=== PATIENT | female | born 1990 | race American Indian/Alaskan Native ===

== ENCOUNTER 2021-04-24 13:18 | Outpatient (CLI) | payer SELFPAY ==
[2021-04-24 13:49] VITALS: BP 117/67
[2021-04-24] MEDS ORDERED: LACTATED RINGERS 1,000 ML IV ONE (14:13)
[2021-04-24 15:00] LABS: Bacteria,Urine 4+ /HPF (Negative); Bilirubin,Urine NEG (Negative); Blood,Urine NEG (Negative); Color,Urine Yellow (Yellow); Granular Casts,Urine 21 /LPF; Mucus,Urine 2+ /HPF; Urobilinogen,Urine < 2.0 mg/dL (<2.0)
[2021-04-24 15:07] LABS: RBC,Urine > 182.0 /HPF (0.0-6.0); WBC,Urine > 182.0 /HPF (0.0-6.0)
[2021-04-24] MEDS ORDERED: FLUCONAZOLE 100 MG TAB PO NR (16:00)
[2021-04-24] MEDS ORDERED: metroNIDAZOLE/NS 500 MG/100 ML 500 MG/100 ML BAG IV NR (16:00)
== END 2021-04-24 17:49 | disposition home or self-care (01) ==
LOC: EDBD → TRG 13:18 → APU 13:21 → TRG 17:49
PROVIDERS: ATTEND Obstetrics & Gynecology
DX: O26.893 Other specified pregnancy related conditions, third trimester (principal); R10.30 Lower abdominal pain, unspecified; O47.03 False labor before 37 completed weeks of gestation, third trimester; Z3A.30 30 weeks gestation of pregnancy
CPT/HCPCS: 59025; 81001; 96365; 96366; 96367; J0690; J7120; 96360

== ENCOUNTER 2021-05-19 13:03 | Outpatient (CLI) | payer SELFPAY ==
[2021-05-19 13:28] VITALS: BP 113/62
[2021-05-19 14:05] LABS: Bacteria,Urine 1+ /HPF (Negative); Bilirubin,Urine NEG (Negative); Blood,Urine NEG (Negative); Color,Urine Yellow (Yellow); Mucus,Urine FEW /HPF; Protein,Urine <15 mg/dL mg/dL (Negative); Urobilinogen,Urine < 2.0 mg/dL (<2.0)
[2021-05-19] MEDS ORDERED: LACTATED RINGERS 1,000 ML IV ONE (14:33)
[2021-05-19] MEDS ORDERED: FLUCONAZOLE 100 MG TAB PO ONE (16:00)
== END 2021-05-19 16:45 | disposition home or self-care (01) ==
LOC: EDBD → TRG 13:03 → APU 13:04 → TRG 16:45
PROVIDERS: ATTEND Obstetrics & Gynecology
DX: Z34.93 Encounter for supervision of normal pregnancy, unspecified, third trimester (principal); Z3A.33 33 weeks gestation of pregnancy
CPT/HCPCS: 59025; 81001

== ENCOUNTER 2021-06-08 21:59 | Emergency (ER) | payer SELFPAY ==
[2021-06-08 23:39] LABS: Basophils % (Auto) 0.2 % (0.0-1.8); Eosinophils # (Auto) 0.4 K/mm3 (0.0-0.4); Eosinophils % (Auto) 3.2 % (0.0-4.3); Hematocrit 33.8 % (30.3-42.9); Hemoglobin 11.1 gm/dl (10.1-14.3); Lymphocytes # (Auto) 1.2 K/mm3 (1.2-5.4); Lymphocytes % (Auto) 9.9 % (13.4-35.0); Mean Corpuscular HGB Conc 33 % (30-34); Mean Corpuscular Volume 93 fl (79-97); Monocytes # (Auto) 1.2 K/mm3 (0.0-0.8); Monocytes % (Auto) 10.5 % (0.0-7.3); Platelet Count 258 K/mm3 (140-440); Red Blood Count 3.62 M/mm3 (3.65-5.03)
[2021-06-08 23:46] LABS: Alanine Aminotransferase 26 units/L (7-56); Albumin 3.6 g/dL (3.9-5)
[2021-06-09 00:03] LABS: Blood Urea Nitrogen 5 mg/dL (7-17); Calcium 9.1 mg/dL (8.4-10.2); Hemolysis Index 0
[2021-06-09 00:06] LABS: BUN/Creatinine Ratio 13
--- NOTE | 2021-06-09 02:51 | Emergency Department Report ---
ED Chest Pain HPI - General Chief Complaint: Chest Pain Stated Complaint: 36 WEEKS PREG, CHEST PAIN KEVIN PUI?: No Time Seen by Provider: 06/09/21 02:32 Source: patient Mode of arrival: Ambulatory Limitations: No Limitations - History of Present Illness Initial Comments: Patient is a 31-year-old female who presents emergency room with complaints of chest pain, cough, nasal congestion and shortness of breath. Patient states is been well for 3 days. Patient states she is 36 weeks . Patient states prior to coming to the emergency room she went to the labor and delivery area and a stated the baby is doing fine. Patient states that she was connected to the contraction monitor and the heart monitor and everything was normal. Patient states that her symptoms are worsening. Patient states that the nasal congestion is bothering her the most. Patient states that her chest pain is mild. Patient patient denies having the COVID-19 vaccine. Patient denies fever and chills. Patient denies nausea vomiting. Patient states her has been healthy. Patient denies recent travel. Patient denies recent international travel. Patient denies exposure to the novel coronavirus. Patient denies sick contacts. Patient denies fever and chills. Patient denies loss of smell. Patient denies diarrhea. Patient denies coming in contact with anybody with symptoms of the novel coronavirus. Patient states she is being followed by her PLANT CULTURE MANAGER. Patient states her care has been normal and uneventful. Patient states she is a G3, P1. MD Complaint: chest pain -: Sudden, days(s) Pain Location: right chest Severity scale (0 -10): 3 Quality: aching Improves With: rest Worsens With: inspiration, palpation, movement re: dyspnea Other Symptoms: cough. denies: fever, syncope, rash, acid taste in mouth, leg swelling, palpitations, burping Treatments Prior to Arrival: none Aspirin use within the Past 7 Days: (0) No - Related Data On Oral Contraceptives: No Previous Rx's Medication Instructions Recorded Last Taken Type Amoxicillin [Amoxicillin TAB] 875 mg PO BID 10 Days #20 tablet 06/09/21 Unknown Rx Fluticasone Furoate [Flonase 2 sprays NS BID #1 spray.susp 06/09/21 Unknown Rx Sensimist] Allergies Allergy/AdvReac Type Severity Reaction Status Date / Time No Known Allergies Allergy Verified 05/19/21 13:32 Heart Score - HEART Score History: Slightly suspicious EKG: Normal Age: < 45 Risk factors: No known risk factors Troponin: < normal limit HEART Score: 0 - EKG Read Time Time EKG Completed: 22:09 EKG Read Time: 22:11 ED Review of Systems ROS: Stated complaint: 36 WEEKS PREG, CHEST PAIN KEVIN Other details as noted in HPI Constitutional: denies: chills, fever Eyes: denies: eye pain, eye discharge, vision change ENT: as per HPI, congestion. denies: ear pain, throat pain Respiratory: see HPI, cough, shortness of breath. denies: wheezing Cardiovascular: as per HPI, chest pain. denies: palpitations Endocrine: no symptoms reported Gastrointestinal: denies: abdominal pain, nausea, diarrhea Genitourinary: denies: urgency, dysuria, discharge Musculoskeletal: denies: back pain, joint swelling, arthralgia Skin: denies: rash, lesions Neurological: denies: headache, weakness, paresthesias Psychiatric: denies: anxiety, depression Hematological/Lymphatic: denies: easy bleeding, easy bruising ED Past Medical Hx - Past Medical History Previous Medical History?: No Hx Hypertension: No Hx Diabetes: No Hx Deep Vein Thrombosis: No Hx Renal Disease: No Hx Sickle Cell Disease: No Hx Seizures: No Hx Asthma: No Hx HIV: No - Surgical History Past Surgical History?: Yes Additional Surgical History: - Family History Family history: no significant - Social History Smoking Status: Never Smoker Substance Use Type: None - Medications Home Medications: Home Medications Medication Instructions Recorded Confirmed Last Taken Type Amoxicillin [Amoxicillin TAB] 875 mg PO BID 10 Days #20 tablet 06/09/21 Unknown Rx Fluticasone Furoate [Flonase 2 sprays NS BID #1 spray.susp 06/09/21 Unknown Rx Sensimist] ED Physical Exam - General Limitations: No Limitations General appearance: alert, in no apparent distress - Head Head exam: Present: atraumatic, normocephalic - Eye Eye exam: Present: normal appearance - ENT ENT exam: Present: mucous membranes moist, other (Sinus tenderness noted. Nasal turbinates enlarged with purulent discharge.) - Neck Neck exam: Present: normal inspection - Respiratory Respiratory exam: Present: normal lung sounds bilaterally, chest wall tenderness. Absent: respiratory distress, wheezes, rales - Cardiovascular Cardiovascular Exam: Present: regular rate, normal rhythm, normal heart sounds. Absent: systolic murmur, diastolic murmur, rubs, gallop - GI/Abdominal GI/Abdominal exam: Present: soft, distended (Gravid abdomen), normal bowel sounds. Absent: tenderness, guarding - Extremities Exam Extremities exam: Present: normal inspection - Back Exam Back exam: Present: normal inspection - Neurological Exam Neurological exam: Present: alert, oriented X3 - Psychiatric Psychiatric exam: Present: normal affect, normal mood - Skin Skin exam: Present: warm, dry, intact, normal color. Absent: rash ED Course Vital Signs 06/08/21 06/09/21 06/09/21 22:57 03:00 03:18 Temperature 98.3 F 98.4 F Pulse Rate 108 H 102 H Respiratory 20 20 20 Rate Blood Pressure 123/72 Blood Pressure 117/72 [Right] O2 Sat by Pulse 97 100 99 Oximetry - Reevaluation(s) Reevaluation #1: Patient states feeling much better. Patient denies pain. Patient denies shortness of breath. I discussed all results and clinical findings with patient. I discussed plan of care with patient. Patient agrees with plan of care. Patient is stable for discharge. Patient will be discharged home. Patient given discharge instructions. Patient voiced understanding of discharge instructions. 06/09/21 04:57 ED Medical Decision Making - Lab Data Result diagrams: 06/08/21 22:59 06/08/21 22:59 - EKG Data -: EKG Interpreted by Me EKG shows normal: sinus rhythm, axis, intervals, QRS complexes, ST-T waves Rate: normal - Radiology Data Radiology results: report reviewed, image reviewed interpreted by me: Chest x-ray: No pneumonia, no pneumothorax, no foreign body, no osseous findings, no acute findings CHEST 1 VIEW 06/09/2021 1:54 AM INDICATION / CLINICAL INFORMATION: chest pain. COMPARISON: None available. FINDINGS: SUPPORT DEVICES: None. HEART / MEDIASTINUM: Heart is upper normal size for AP portable technique. LUNGS / PLEURA: No significant pulmonary or pleural abnormality. No pneumothorax. ADDITIONAL FINDINGS: No significant additional findings. IMPRESSION: 1. No acute findings. - Medical Decision Making Patient is a 31-year-old female that presents emergency room plaints of chest pain and shortness of breath. Patient is 36 weeks . Patient is already been cleared by labor and delivery and sent down here for evaluation. Patient also complained of nasal congestion and cough. Patient did not have fever. Patient on examination his chest pain was reproducible with palpation and deep breaths. Patient also found to have nasal and sinus tenderness. Patient had labs done which were essentially unremarkable. Patient had 2 sets of cardiac enzymes negative. Patient had a chest x-ray which was negative for acute findings. I personally reviewed the chest x-ray. Patient had an EKG done which was negative for acute findings showed normal ST.. I personally reviewed the EKG. Patient was treated with oral antibiotics as an outpatient. Patient instructed follow-up with PLANT CULTURE MANAGER for continuation of care. Patient also instructed to clear antibiotics with PLANT CULTURE MANAGER prior to starting. Patient was given Flonase. Patient not require any further emergency medical service. Patient not require inpatient services. Patient stable for discharge. Patient discharged home. - Differential Diagnosis Chest pain, shortness of breath, URI, bronchitis, sinusitis Critical care attestation.: If time is entered above; I have spent that time in minutes in the direct care of this critically ill patient, excluding procedure time. ED Disposition Clinical Impression: Nasal congestion, SOB (shortness of breath), Cough, Bronchitis Sinusitis Qualifiers: Sinusitis location: maxillary Chronicity: acute Recurrence: non-recurrent Qualified Code(s): J01.00 - Acute maxillary sinusitis, unspecified Chest pain Qualifiers: Chest pain type: unspecified Qualified Code(s): R07.9 - Chest pain, unspecified Disposition: DC-01 TO HOME OR SELFCARE Is pt being admited?: No Does the pt Need Aspirin: No Condition: Stable Instructions: Cough, Adult, [id number], Sinusitis, Adult, [id number], Nonspecific Chest Pain, Adult, Sinus Headache, Upper Respiratory Infection, Adult, [id number], Chronic Bronchitis (ED) Additional Instructions: Patient to follow-up with primary care in 2 to 3 days. Patient to follow-up with PLANT CULTURE MANAGER in 2 to 3 days. patient to rest. Patient to increase water. Patient to avoid strenuous exercise or heavy lifting until cleared by PLANT CULTURE MANAGER. Patient to take Tylenol as needed for pain. Patient to take meds as directed. Patient to return to the ER if condition worsens, changes or new symptoms arise. Prescriptions: Amoxicillin [Amoxicillin TAB] 875 mg PO BID 10 Days #20 tablet Fluticasone Furoate [Flonase Sensimist] 2 sprays NS BID #1 spray.susp Referrals: PRIMARY CARE, [Primary Care Provider] - 2-3 Days Time of Disposition: 05:02 Print Language: THAI
--- NOTE | 2021-06-09 03:13 | XRay Report ---
CHEST 1 VIEW 06/09/2021 1:54 AM INDICATION / CLINICAL INFORMATION: chest pain. COMPARISON: None available. FINDINGS: SUPPORT DEVICES: None. HEART / MEDIASTINUM: Heart is upper normal size for AP portable technique. LUNGS / PLEURA: No significant pulmonary or pleural abnormality. No pneumothorax. ADDITIONAL FINDINGS: No significant additional findings. IMPRESSION: 1. No acute findings. Signer Name: Loi Velasquez MD Signed: 06/09/2021 3:08 AM Workstation Name: [id number]
[2021-06-09 04:21] VITALS: BP 117/72
--- NOTE | 2021-06-09 13:02 | Electrocardiograph Report ---
[facility] Test Date: 2021-06-08 Test Time: 22:09:22 Pat Name: DEEPAK HOUGH Department: Room: Gender: F Information Security Specialist: SCOTT : 1990 Requested By: DANYELL KOENIG III Order Number: [id number] Reading MD: Niki Obrien Measurements Intervals [place] Rate: 109 P: 22 [place]: 138 QRS: 49 QRSD: 69 T: 13 QT: 320 QTc: 432 Interpretive Statements Sinus tachycardia No previous ECG available for comparison Electronically Signed On 06-09-2021 13:01:43 EDT by Niki Obrien
== END 2021-06-09 06:16 | disposition home or self-care (01) ==
LOC: ED 21:59 → EDBD 21:59 → ED 06-09 06:16
DX: O99.513 Diseases of the respiratory system complicating pregnancy, third trimester (principal); J32.9 Chronic sinusitis, unspecified; J40 Bronchitis, not specified as acute or chronic; R07.89 Other chest pain; R09.81 Nasal congestion; R06.02 Shortness of breath; R05 Cough; Z3A.36 36 weeks gestation of pregnancy; Z98.890 Other specified postprocedural states
CPT/HCPCS: 36415; 71045; 80053; 84484; 85025; 93005

== ENCOUNTER 2021-06-16 13:46 | Observation (INO) | payer SELFPAY ==
[2021-06-17 05:10] VITALS: BP 113/71
== END 2021-06-17 07:43 | disposition home or self-care (01) ==
LOC: TRG 13:46 → APU 13:48 → TRG 20:33 → LD 20:33
PROVIDERS: ADMIT Obstetrics & Gynecology; ATTEND Obstetrics & Gynecology
DX: O62.9 Abnormality of forces of labor, unspecified (principal); O47.1 False labor at or after 37 completed weeks of gestation; O99.283 Endocrine, nutritional and metabolic diseases complicating pregnancy, third trimester; E07.9 Disorder of thyroid, unspecified; Z98.891 History of uterine scar from previous surgery; Z3A.38 38 weeks gestation of pregnancy
CPT/HCPCS: 36415; 76815; 76819; 84112; 85025; 86850; 86900; 86901; G0378

== ENCOUNTER 2021-06-20 08:41 | Inpatient (IN) | payer SELFPAY ==
[2021-06-20] MEDS ORDERED: BUTORPHANOL 2 MG/1 ML INJ IV PRN (12:29)
[2021-06-20] MEDS ORDERED: LACTATED RINGERS 1,000 ML ONE ×2 (13:06→21:09)
[2021-06-20] MEDS ORDERED: LACTATED RINGERS 1,000 ML IV ONE ×2 (14:26→17:34)
--- NOTE | 2021-06-20 20:32 | History and Physical Report ---
History of Present Illness Date of examination: 06/20/21 Date of admission: 06/20/21 09:28 Chief complaint: contractions, prior c/s x 1 History of present illness: 31 yo A1 at 39w2d (MIGUELINA 06/25/21) c/b prior c/s x 1 (for NRFHTs), anemia (on iron), hypothyriodism (on levothyroxine 25 mcg qday) presenting with contractions. Originally planning for TOLAC, but now declining trial and wanting repeat c/s. +FM. Denies LOF or VB. Denies PIH symptoms. PNC reviewed Rubella immune, HBSAG NR, RPR NR, HIV NR, Trich neg, GCCT neg Ucx neg H/H 10.6/32.1 A pos GBS neg Past History Past Medical History: thyroid disease Past Surgical History: section (x1) Family/Genetic History: none Social history: no significant social history - Obstetrical History Expected Date of Delivery: 06/25/21 Actual Gestation: 39 Week(s) 2 Day(s) : 3 Para: 1 Spontaneous Abortions: 1 Number of Living Children: 1 Medications and Allergies Allergies Allergy/AdvReac Type Severity Reaction Status Date / Time No Known Allergies Allergy Verified 05/19/21 13:32 Home Medications Medication Instructions Recorded Confirmed Last Taken Type Fluticasone Furoate [Flonase 2 sprays NS BID #1 spray.susp 06/09/21 06/16/21 1 Day Ago Rx Sensimist] ~06/15/21 Ferrous Sulfate [Iron 325 MG] 325 mg PO DAILY 06/16/21 06/16/21 1 Day Ago History ~06/15/21 Folic Acid [Folvite] 1 mg PO QDAY 06/16/21 06/16/21 1 Day Ago History ~06/15/21 Levothyroxine [Synthroid] 25 mcg PO QAM 06/16/21 06/16/21 1 Day Ago History ~06/15/21 Vit-Fe Fumar-FA [ 1 tab PO QDAY 06/16/21 06/16/21 1 Day Ago History Vitamin] ~06/15/21 Active Meds: Active Medications Butorphanol Tartrate (Butorphanol 2 Mg/1 Ml Inj) 2 mg IV Q1H PRN PRN Reason: Labor Pain Last Admin: 06/20/21 13:41 Dose: 2 mg Documented by: Citric Acid/Sodium Citrate (Bicitra Oral Liqd 30ml) 30 ml PO ONCE ONE Stop: 06/20/21 20:25 Famotidine (Famotidine 20 Mg/2 Ml Inj) 20 mg IV ONCE ONE Stop: 06/20/21 20:25 Lactated Ringer's (Lactated Ringers) 1,000 mls @ 2,250 mls/hr IV PREOP TAN Stop: 06/21/21 20:57 Oxytocin/Sodium Chloride (Pitocin/Ns 30 Unit/500ml) 30 units in 500 mls @ 0 mls/hr IV TITR TAN; Protocol Cefazolin Sodium (Ancef/Sterile Water 2 Gm/20 Ml) 2 gm in 20 mls @ 80 mls/hr IV PREOP NR; Protocol Metoclopramide HCl (Metoclopramide 10 Mg/2 Ml Inj) 10 mg IV ONCE ONE Stop: 06/20/21 20:25 Review of Systems All systems: negative (expect HPI) - Vital Signs Vital signs: Vital Signs Pulse BP 86 125/77 06/20/21 09:17 06/20/21 09:17 Temp Pulse Resp BP Pulse Ox 98 F 88 18 122/74 06/20/21 19:16 06/20/21 13:44 06/20/21 19:16 06/20/21 13:44 - Physical Exam Abdomen: Positive: normal appearance, normal bowel sounds Uterus: Positive: enlarged (gravid) - Obstetrical FHR: category 1 Uterine Contraction Monitor Mode: External Cervical Dilatation: 3 Cervical Effacement Percentage: 90 station: -2 Uterine Contraction Pattern: Regular Results All other labs normal. Assessment and Plan - Patient Problems (1) H/O: Current Visit: Yes Status: Acute Plan to address problem: To OR for repeat c/s. Declining TOLAC --Consented in the chart --Questions solicited and answered (2) Hypothyroidism Current Visit: Yes Status: Acute Plan to address problem: --Continue levothyroxine 25 mcg qday
--- NOTE | 2021-06-20 20:41 | Anesthesia Consultation ---
Anesthesia Consult and Med Hx Date of service: 06/20/21 - Airway Anesthetic Teeth Evaluation: Good ROM Head & Neck: Adequate Mental/Hyoid Distance: Adequate Mallampati Class: Class II Intubation Access Assessment: Probably Good - Pulmonary Exam CTA: Yes - Cardiac Exam Cardiac Exam: RRR - Pre-Operative Health Status ASA Pre-Surgery Classification: ASA2 Proposed Anesthetic Plan: Spinal - Pulmonary Hx Smoking: No Hx Asthma: No Hx Sleep Apnea: No - Cardiovascular System Hx Hypertension: No Hx Heart Attack/AMI: No Hx Angina: No - Central Nervous System Hx Seizures: No Hx Psychiatric Problems: No - Endocrine Hx Renal Disease: No Hx Liver Disease: No Hx Insulin Dependent Diabetes: No Hx Non-Insulin Dependent Diabetes: No Hx Hypothyroidism: Yes (takes synthroid) Hx Hyperthyroidism: No - Hematic Hx Anemia: No Hx Sickle Cell Disease: No - Other Systems Hx Alcohol Use: No
[2021-06-20 20:46] LABS: Basophils % (Auto) 0.3 % (0.0-1.8); Eosinophils % (Auto) 0.2 % (0.0-4.3); Hematocrit 39.3 % (30.3-42.9); Hemoglobin 12.7 gm/dl (10.1-14.3); Lymphocytes # (Auto) 1.3 K/mm3 (1.2-5.4); Lymphocytes % (Auto) 10.1 % (13.4-35.0); Mean Corpuscular HGB Conc 32 % (30-34); Mean Corpuscular Volume 96 fl (79-97); Monocytes # (Auto) 0.8 K/mm3 (0.0-0.8); Monocytes % (Auto) 6.3 % (0.0-7.3); Platelet Count 245 K/mm3 (140-440); Red Blood Count 4.11 M/mm3 (3.65-5.03); Red Cell Distribution Width 14.7 % (13.2-15.2)
[2021-06-20] MEDS ORDERED: BUPIVACAINE/PF (0.5%) 5 MG/1 ML 30 ML VIAL INFILTRATI ONE (20:49)
[2021-06-20] MEDS ORDERED: ONDANSETRON 4 MG/2 ML INJ ONE (20:49)
[2021-06-20] MEDS ORDERED: KETOROLAC 30 MG/1 ML INJ ONE (20:49)
[2021-06-20] MEDS ORDERED: OXYTOCIN DRIP 30 UNITS/500 ML BAG IV SCH ×2 (21:00→23:00)
[2021-06-20] MEDS ORDERED: ceFAZolin/Water 2 GM/20 ML 2 GM/20 ML SYRINGE IV NR (21:00)
[2021-06-20] MEDS ORDERED: FAMOTIDINE 20 MG/2 ML INJ IV ONE (21:00)
[2021-06-20] MEDS ORDERED: PHENYLEPHRINE/NS 1,000 MCG/10 ML SYRINGE (OR USE) IV ONE (21:09)
[2021-06-20] MEDS ORDERED: NALOXONE 0.4 MG/1 ML INJ IV PRN ×2 (21:30→22:24)
[2021-06-20] MEDS ORDERED: PROMETHAZINE 25 MG TAB PO PRN (21:30)
[2021-06-20] MEDS ORDERED: ePHEDrine SULFATE 50 MG/1 ML INJ ONE (21:30)
[2021-06-20] MEDS ORDERED: ONDANSETRON 4 MG/2 ML INJ IV PRN ×2 (21:30→22:24)
[2021-06-20] MEDS ORDERED: NalbUPHINE 10 MG/1 ML INJ IV PRN (21:30)
[2021-06-20] MEDS ORDERED: METOCLOPRAMIDE 10 MG/2 ML INJ IV ONE (21:30)
[2021-06-20] MEDS ORDERED: BICITRA ORAL LIQD 30ML PO ONE (21:30)
[2021-06-20] MEDS ORDERED: diphenhydrAMINE 50 MG/ML VIAL IV PRN (21:30)
[2021-06-20] MEDS ORDERED: PROMETHAZINE 25 MG RECT SUPP PR PRN ×2 (21:30→22:24)
[2021-06-20] MEDS ORDERED: LACTATED RINGERS 1,000 ML IV SCH (21:30)
[2021-06-20] MEDS ORDERED: LANOLIN/ZINC/DIMETHICONE (LANSINOH) 7 GM TP PRN (22:24)
[2021-06-20] MEDS ORDERED: IBUPROFEN 800 MG TAB PO PRN (22:24)
[2021-06-20] MEDS ORDERED: HYDROCORTISONE 25 MG RECTAL SUPP PR PRN (22:24)
[2021-06-20] MEDS ORDERED: SENNOSIDES 8.6 MG TAB PO PRN (22:24)
[2021-06-20] MEDS ORDERED: MORPHINE 4 MG/1 ML INJ IV PRN (22:24)
[2021-06-20] MEDS ORDERED: WITCH HAZEL/ GLYCERIN PAD TP PRN (22:24)
[2021-06-20] MEDS ORDERED: MAGNESIUM HYDROXIDE (MOM) ORAL LIQD UDC PO PRN (22:24)
--- NOTE | 2021-06-20 22:29 | Procedure Note ---
OB Delivery Note - Delivery Date of Delivery: 06/20/21 Surgeon: DARLIN MORENO JR Estimated blood loss: other (614cc QBL) - Section Preop diagnosis: repeat Postop diagnosis: same section procedure: section, repeat low transverse Disposition: PACU Complications: none Narrative: Indication: 31 yo A1 at 39w2d (MIGUELINA 06/25/21) c/b prior c/s x 1 (for NRFHTs), anemia (on iron), hypothyriodism (on levothyroxine 25 mcg qday) presenting with contractions. Originally planning for TOLAC, but now declining trial and wanting repeat c/s. Findings: Normal uterus, tubes and ovaries. Clear fluid. No nuchal cord. Delivery of male at 2140 Weight 8 lb Height 19.5 in APGARS 8/9 EBL 614cc IVF 1200cc UOP 100cc Procedure: Patient was taken to the operating room prepped and draped in the usual sterile fashion. Pfannenstiel skin incision was made and carried down to the underlying fascia. Fascia was incised and the incision was distended bilaterally. Rectus fascia was dissected off the rectus muscle superiorly and inferiorly. Peritoneum was identified and entered. Peritoneal incision extended superiorly and inferiorly. The bladder was visualized. The bladder blade was placed. Uterine hysterotomy incision was made and extended bilaterall y. The baby was delivered in the typical vertex fashion. Baby was bulb suction at delivery. The cord was cut and clamped and handed off to the team. The placenta was delivered spontaneously. The uterus was exteriorized and cleared of all clots and debris. Uterine incision was closed with a 0 Vicryl in a running locked fashion. Good hemostasis was noted after second imbricating layer. Hemoblast was applied to the uterine incisional base to provide hemostasis. The urine was noted to be clear. Uterus, tubes, and ovaries were returned to the abdominal cavity. Bilateral gutters were cleared and the abdomen and pelvis were irrigated. Good hemostasis noted. The rectus muscle was reapproximated with 2-0 Vicryl. Attention was directed towards the rectus fascia which was reapproximated with 0 PDS in a running fashion. The subcutaneous tissue was irrigated and reapproximated with 2-0 Vicryl in a running fashion. Skin was closed with a 4-0 Vicryl in a subcuticular fashion. The procedure was completed and the patient tolerated the procedure well. All instruments and lap counts were correct x2. - A at 1 minute: 8 at 5 minutes: 9 Infant Gender: Male
--- NOTE | 2021-06-20 22:48 | Anesthesia Day of Surgery ---
Anesthesia Day of Surgery - Day of Surgery Patient Examined: Yes Patient H&P Reviewed: Yes Patient is NPO: Yes Beta Blockers: No Cardiac Clearance: No Pulmonary Clearance: No Dudley's Test: N/A
--- NOTE | 2021-06-20 22:49 | Progress Note ---
Spinal Anesthesia Block - Spinal Anesthesia Block Start Time: 20:55 Stop Time: 21:10 Performed by:: ANTOINE CARRILLO Procedure: Spinal anesthesia block is being performed for [C/S]. H&P, labs have been reviewed. Patient's questions and concerns have been answered. Informed consent has been performed. Timeout has was performed. Patient in sitting position on side of bed. Sterile prep and drape was performed. 3 mL 1% lidocaine skin wheal at L [3]-L [4]. Needle introducer advanced. 25-gauge spinal needle advanced, [+] CSF [-] blood. [Marcaine 10mg and Precedex 5mcg] Spinal dose was given. All needles removed. Patient tolerated procedure well.
--- NOTE | 2021-06-20 22:50 | Progress Note ---
Regional Anesthesia Block - Regional Anesthesia Block Start Time: 22:38 Stop Time: 22:43 Performed By:: ANTOINE CARRILLO Procedure: Patient consented for TAP block for post surgical pain management. Patient identified, monitors placed, and time out performed. Mid axillary TAP identified bilaterally via ultrasound. Skin prepped bilaterally with [chlorhexidine] and [20g stimuplex] needle advanced to the TAP. 30ml [Marcaine 0.25% with 25mcg Pre cedex and Decadron 5mg] injected under ultrasound guidance on the [left] side. 30ml [Marcaine 0.25% with 25mcg Precedex and Decadron 5mg] injected under ultrasound guidance on the [right] side. Negative aspiration every 5mL, Patient tolerated the procedure well. No apparent complications seen.
[2021-06-21] MEDS: HYDROmorphone 1 MG/1 ML INJ IV PRN ×2 (03:38→13:09)
[2021-06-21] MEDS: KETOROLAC 30 MG/1 ML INJ IV SCH ×3 (08:34→17:02)
--- NOTE | 2021-06-21 09:09 | Progress Note ---
Assessment and Plan POD # 1 A: S/P repeat LTCS P: Continue routine pp care Encourage ambulation D/C home within 24-48 hrs if stable Subjective - Subjective Date of service: 06/21/21 Principal diagnosis: s/p repeat LTCS Patient reports: appetite normal, voiding normally, pain well controlled, flatus, ambulating normally [place]: doing well, bottle feeding Objective - Vital Signs Latest vital signs: Vital Signs Temp Pulse Resp BP Pulse Ox Pulse Ox 06/21/21 08:34 16 06/21/21 07:56 98.3 F 102 H 17 101/54 97 06/21/21 03:38 18 06/21/21 03:36 98.7 F 95 H 20 106/63 98 06/21/21 00:25 100 06/20/21 23:25 85 25 H 130/81 100 06/20/21 23:10 74 21 136/80 99 06/20/21 22:55 85 14 126/62 100 06/20/21 22:40 82 20 128/71 100 06/20/21 22:35 68 21 125/57 100 06/20/21 22:30 97.6 F 80 17 122/53 99 06/20/21 19:16 98 F 18 06/20/21 13:44 88 122/74 06/20/21 13:22 98.0 F 18 06/20/21 09:17 86 125/77 Intake and Output 06/20/21 06/21/21 06/21/21 22:59 06:59 14:59 Intake Total 1200 540 Output Total 100 450 Balance 1100 90 Intake: IV 1200 300 Oral 240 Output: Urine 100 450 Indwelling Catheter 200 Other: Total, Intake Amount 240 Total, Output Amount 200 Voiding Method Indwelling Catheter - Exam Breasts: Present: normal Abdomen: Present: normal appearance, soft, normal bowel sounds Vulva: both: normal Uterus: Present: normal, firm, fundal height below umbilicus Extremities: Present: normal Incision: Present: normal, dry, intact - Labs Labs: Abnormal lab results 06/20/21 Range/Units Unknown WBC 13.3 H (4.5-11.0) K/mm3 Lymph % (Auto) 10.1 L (13.4-35.0) % Seg Neutrophils % 83.1 H (40.0-70.0) % Seg Neutrophils # 11.1 H (1.8-7.7) K/mm3
--- NOTE | 2021-06-21 10:18 | Post Anesthesia Evaluation ---
- Post Anesthesia Evaluation Patient Participated: Yes Airway Patent: Yes Stable Respiratory Function: Yes Nausea/Vomiting: No Temp > 96.8F: Yes Pain Manageable: Yes Adequeate Hydration: Yes Anesthesia Complications: No Block Receding Appropriately: Yes Patient on Ventilator: No
[2021-06-21 13:46] LABS: Hematocrit 27.3 % (30.3-42.9); Hemoglobin 8.8 gm/dl (10.1-14.3)
[2021-06-21] MEDS: SIMETHICONE 80 MG CHEW TAB PO PRN ×2 (17:03→22:44)
[2021-06-21] MEDS: oxyCODONE /ACETAMINOPHEN 5-325MG TAB PO PRN (22:44)
[2021-06-22] MEDS: HYDROmorphone 1 MG/1 ML INJ IV PRN (02:55)
[2021-06-22] MEDS: oxyCODONE /ACETAMINOPHEN 5-325MG TAB PO PRN ×2 (06:26→14:05)
--- NOTE | 2021-06-22 09:54 | Progress Note ---
Assessment and Plan A: S/P Repeat LTCS Asymptomatic anemia P: D/C home per pt request Subjective - Subjective Date of service: 06/22/21 Principal diagnosis: s/p repeat LTCS Patient reports: appetite normal, voiding normally, pain well controlled, flatus, ambulating normally [place]: doing well, bottle feeding Objective - Vital Signs Latest vital signs: Vital Signs Temp Pulse Resp BP BP Pulse Ox Pulse Ox 06/22/21 08:24 97.9 F 92 H 18 108/57 95 06/22/21 06:26 18 06/22/21 02:55 18 06/22/21 00:00 98.6 F 74 18 102/74 06/21/21 22:44 18 06/21/21 19:40 100 06/21/21 17:02 16 06/21/21 16:30 99.1 F 101 H 16 119/75 98 06/21/21 13:09 16 Intake and Output 06/21/21 06/22/21 06/22/21 22:59 06:59 14:59 Intake Total 300 Balance 300 Intake: Intake, Free Water 300 Other: # Voids Void 1 - Exam Breasts: Present: normal Abdomen: Present: normal appearance, soft, normal bowel sounds Vulva: both: normal Uterus: Present: normal, firm, fundal height below umbilicus Extremities: Present: normal Incision: Present: normal, dry, intact - Labs Labs: Abnormal lab results 06/21/21 Range/Units 13:40 Hgb 8.8 L D (10.1-14.3) gm/dl Hct 27.3 L D (30.3-42.9) %
[2021-06-22] MEDS ORDERED: FERROUS SULFATE 325 MG TAB PO SCH (10:00)
--- NOTE | 2021-06-22 10:00 | Discharge Summary ---
Providers - Providers Date of Admission: 06/20/21 09:28 Date of discharge: 06/22/21 Attending physician: DARLIN MORENO JR, MD Primary care physician: DARLIN MORENO JR, MD Hospitalization Reason for admission: active labor Delivery: Procedure: repeat low transverse Episiotomy: none Laceration: none Incision: normal, dry, intact Other procedures: none complications: other (asymptomatic anemia) Discharge diagnosis: IUP at term delivered baby: male Hospital course: Pt was admitted in labor and had a repeat LTCS. She dev asymptomatic anemia pp and was prescribed Fe. She was d/c'd home per her request. See H&P, delivery summary, and pp notes. Condition at discharge: Stable Disposition: 01 HOME / SELF CARE / HOMELESS Plan - Discharge Medications Prescriptions: Ibuprofen [Motrin 800 MG tab] 800 mg PO Q6H PRN #30 tablet PRN Reason: Pain, Mild (1-3) oxyCODONE /ACETAMINOPHEN [Percocet 5/325 mg] 1 tab PO Q6H PRN #30 tablet PRN Reason: Pain, Moderate (4-6) - Provider Discharge Summary Activity: routine, no sex for 6 weeks, no heavy lifting 4 weeks, no strenuous exercise Diet: routine Instructions: routine Additional instructions: [] Smoking cessation referral if applicable(refer to patient education folder for contact #) [] Refer to [facility] Booklet Call your doctor immediately for: * Fever > 100.5 * Heavy vaginal bleeding ( >1 pad per hour) * Severe persistent headache * Shortness of breath * Reddened, hot, painful area to leg or breast * Drainage or odor from incision. * Keep incision clean and dry at all times and follow doctor's instructions regarding bathing/showering - Follow up plan Follow up: DARLIN MORNEO JR, MD [Primary Care Provider] - 14 Days
[2021-06-22] MEDS ORDERED: TETANUS,DIPH,PERTUSS(ACELL) VACCINE 0.5 ML SYRINGE IM ONE (14:00)
[2021-06-22 16:26] VITALS: BP 108/62
== END 2021-06-22 15:15 | disposition home or self-care (01) | DRG 788 ==
LOC: TRG 08:41 → APU 08:42 → TRG 09:28 → LD 09:28 → OBSVTOIN 09:28 → OB 06-21 00:04
PROVIDERS: ADMIT Obstetrics & Gynecology; ATTEND Obstetrics & Gynecology
PROC: 10D00Z1 Extraction of Products of Conception, Low, Open Approach (ICD-10-PCS; principal; 2021-06-20)
PROC: 3E0234Z Introduction of Serum, Toxoid and Vaccine into Muscle, Percutaneous Approach (ICD-10-PCS; 2021-06-22)
DX: O99.284 Endocrine, nutritional and metabolic diseases complicating childbirth (principal); O34.211 Maternal care for low transverse scar from previous cesarean delivery; E03.9 Hypothyroidism, unspecified; O99.03 Anemia complicating the puerperium; D64.9 Anemia, unspecified; Z20.822 Contact with and (suspected) exposure to COVID-19; Z3A.39 39 weeks gestation of pregnancy; Z37.0 Single live birth
CPT/HCPCS: 36415; 84112; 85014; 85018; 85025; 86850; 86900; 86901; 90715; 99211; G0378; G0463; J0595; J1170; J1885; J2370; J2405; J2765; J3490; J7120; U0003